=== PATIENT | male | born 1970 | race Caucasian/White ===

== ENCOUNTER 2017-02-14 00:36 | Day surgery (SDC) | payer OTHER ==
[~2017-02-14 00:36] MED LIST: ALBU8.5H2 INHALATION; BACL20TA PO; BENZ200C44 PO; CITA20TA PO; GEMF600T3 PO; HYDR50TA3 PO; LISI-571 PO; LORA-943 PO; NIAC100045 PO; OMEP20CA11 PO; TRAZ-115 PO
[2017-02-14] MEDS ORDERED: 0.9% Sodium Chloride 1,000 ML IV SCH (06:00)
[2017-02-14] MEDS ORDERED: fentaNYL-PF 50 mCg/mL 2 mL Inj IVPUSH PRN (06:00)
[2017-02-14] MEDS ORDERED: Sodium Chloride LOK Flush 10 mL Syringe IV PRN (06:00)
== END 2017-02-14 23:59 | disposition home or self-care (01) ==
LOC: END 00:36
PROVIDERS: ATTEND Internal Medicine Gastroenterology
DX: Z12.11 Encounter for screening for malignant neoplasm of colon (principal); Z83.71 Family history of colonic polyps; Z53.8 Procedure and treatment not carried out for other reasons